=== PATIENT | female | born 1945 | race Caucasian/White ===

== ENCOUNTER 2020-02-05 08:36 | Emergency (ER) | payer OTHER ==
[~2020-02-05] VITALS: Ht 157.5 cm; Wt 54.4 kg
[2020-02-05] MEDS ORDERED: NORVASC 2.5 MG2.5 M1 PO (09:08)
[2020-02-05] MEDS ORDERED: LIPITOR40 MG PO (09:09)
[2020-02-05] MEDS ORDERED: LEVO-T75 MCG PO (09:09)
[2020-02-05] MEDS ORDERED: TOPROL XL25 MG PO (09:09)
[2020-02-05] MEDS ORDERED: STOOL SOFTENER100 M1 PO (09:09)
[2020-02-05] MEDS ORDERED: CITRACAL + BON1 EACH PO (09:10)
[2020-02-05 09:46] LABS: INFLUENZA A ANTIGEN Negative (Negative); INFLUENZA B ANTIGEN Negative (Negative)
[2020-02-05] MEDS ORDERED: AUGMENTIN 875-1 EACH PO (09:48)
[2020-02-05] MEDS ORDERED: TESSALON PERLE100 M1 PO (09:49)
[2020-02-05 10:04] VITALS: BP 110/52
== END 2020-02-05 10:05 | disposition home or self-care (01) ==
LOC: M.ERS 08:36
PROVIDERS: Emergency Medicine Emergency Medical Services
DX: J32.8 Other chronic sinusitis (principal); H92.03 Otalgia, bilateral; J02.9 Acute pharyngitis, unspecified; E03.9 Hypothyroidism, unspecified; I10 Essential (primary) hypertension; E78.00 Pure hypercholesterolemia, unspecified; Z88.8 Allergy status to other drugs, medicaments and biological substances; Z79.899 Other long term (current) drug therapy